=== PATIENT | male | born 1955 | race Caucasian/White ===

== ENCOUNTER 2019-01-21 14:04 | Emergency (ER) | payer BC ==
[2019-01-21 15:10] VITALS: BP 99/72
--- NOTE | 2019-01-21 15:53 | UC ---
Throat Pain/Nasal Gonzalo HPI - HPI Summary HPI Summary: Patient is a 63-year-old male presenting with for sinus pressure and headaches 4 weeks. Patient states he thought he would get better but has gradually worsened. No sinus tenderness. Postnasal drip and intermittent dry cough. Notes daily headaches from sinus pressure. Denies ear pain, sore throat , shortness breath, and wheezing. Denies nausea and vomiting. Denies fever and chills. Has been using Flonase and Mucinex without relief. Patient is a current everyday heavy smoker and has been since he was a teenager. Patient states he is interested in possibly trying to quit. - History of Current Complaint Chief Complaint: UCGeneralIllness Stated Complaint: SINUS PRESSURE Hx Obtained From: Patient Onset/Duration: Gradual Onset, Lasting Weeks Severity: Severe Pain Intensity: 9 Pain Scale Used: 0-10 Numeric - Allergies/Home Medications Allergies/Adverse Reactions: Allergies Allergy/AdvReac Type Severity Reaction Status Date / Time No Known Allergies Allergy Verified 01/21/19 15:10 Home Medications: Home Medications Lisinopril/Hydrochlorothiazide [Lisinopril-Hctz 10-12.5 mg Tab] 1 each PO DAILY 01/21/19 [History Confirmed 01/21/19] Sertraline* [Zoloft*] 10 mg PO DAILY 01/21/19 [History Confirmed 01/21/19] Simvastatin [Zocor] 40 mg PO BEDTIME 01/21/19 [History Confirmed 01/21/19] PMH/Surg Hx/FS Hx/Imm Hx Endocrine History: Dyslipidemia Cardiovascular History: Hypertension - Surgical History Surgical History: None - Social History Alcohol Use: Occasionally Substance Use Type: None Smoking Status (MU): Heavy Every Day Tobacco Smoker Type: Cigarettes Cessation Counseling: Counseled 3+Min - 10 Min Review of Systems All Other Systems Reviewed And Are Negative: Yes Constitutional: Positive: Negative. Negative: Fever, Chills, Fatigue ENT: Positive: Sinus Congestion, Sinus Pain/Tenderness. Negative: Sore Throat, Ear Ache, Nasal Discharge Respiratory: Positive: Cough. Negative: Shortness Of Breath Cardiovascular: Positive: Negative Gastrointestinal: Positive: Negative. Negative: Abdominal Pain, Vomiting, Nausea Musculoskeletal: Positive: Negative Neurological: Positive: Headache Physical Exam Triage Information Reviewed: Yes Appearance: Well-Appearing, No Pain Distress, Well-Nourished Vital Signs: Initial Vital Signs Temp 98.0 F 11/02/19 15:05 Pulse 78 01/21/19 15:05 Resp 16 01/21/19 15:05 BP 99/72 01/21/19 15:05 Pulse Ox 95 01/21/19 15:05 Vital Signs Reviewed: Yes Eyes: Positive: Conjunctiva Clear ENT: Positive: Hearing grossly normal, Pharynx normal, Nasal congestion, Nasal drainage - PND, TMs normal, Sinus tenderness - frontal, Uvula midline. Negative : Tonsillar swelling, Tonsillar exudate Neck exam: Normal Neck: Positive: Supple, Nontender, No Lymphadenopathy Respiratory Exam: Normal Respiratory: Positive: Lungs clear, Normal breath sounds, No respiratory distress. Negative: Crackles, Rhonchi, Stridor, Wheezing Cardiovascular Exam: Normal Cardiovascular: Positive: RRR Neurological: Positive: Alert Psychological: Positive: Age Appropriate Behavior Throat Pain/Nasal Course/Dx - Course Course Of Treatment: I'm treating with Augmentin for sinusitis. Instructed to continue with symptomatic treatment. I also counseled patient on smoking cessation and instruct him to follow up with his PCP or one of the referrals given her information and help on quitting. Instructed to follow up with PCP if symptoms persist or worsen. Patient voiced understanding and agreed with the treatment plan. - Differential Dx/Diagnosis Provider Diagnosis: Encounter for smoking cessation counseling, Sinusitis, Acute bronchitis Discharge ED - Sign-Out/Discharge Documenting (check all that apply): Patient Departure All imaging exams completed and their final reports reviewed: No Studies - Discharge Plan Condition: Stable Disposition: HOME Prescriptions: Amoxicillin/Clavulanate TAB* [Augmentin TAB 875*] 875 mg PO BID #14 tab Patient Education Materials: How to Stop Smoking (ED), Sinusitis (ED) Referrals: [facility] [Outside] - If Needed [facility] [Outside] - If Needed Additional Instructions: As discussed, take Augmentin as prescribed for the treatment of your sinusitis. You may also continue to take Mucinex and use Flonase as directed as prescribed to help relieve symptoms. You may take ibuprofen or tylenol as directed for pain relief. Get plenty of rest and fluids. Follow up with your primary care doctor or one of the referrals listed below if your symptoms worsen or do not resolve within 7-10 days. Follow up with your PCP or the Physician Referral listed below for further information and help on quitting smoking. - Billing Disposition and Condition Condition: STABLE Disposition: Home
== END 2019-01-21 16:14 | disposition home or self-care (01) ==
LOC: UCCORT 14:04
DX: J32.9 Chronic sinusitis, unspecified (principal); J20.9 Acute bronchitis, unspecified; R51 Headache; F17.210 Nicotine dependence, cigarettes, uncomplicated; I10 Essential (primary) hypertension; E78.5 Hyperlipidemia, unspecified; Z71.6 Tobacco abuse counseling; Z79.899 Other long term (current) drug therapy
CPT/HCPCS: 99202; G0463

== ENCOUNTER 2019-02-20 11:17 | Emergency (ER) | payer BC ==
[2019-02-20 11:50] VITALS: BP 108/71
--- NOTE | 2019-02-20 11:51 | UC ---
Throat Pain/Nasal Ognzalo HPI - HPI Summary HPI Summary: 63-year-old male who has had cough and cold symptoms for greater than 1 month. He was treated with an antibiotic on January 21 but feels like nothing ever improved. He went to see his primary care provider 2 weeks later and was told he had allergic rhinitis. Over the past few days he's had increased sinus pressure with purulent postnasal drainage. He continues to smoke. - History of Current Complaint Chief Complaint: UCGeneralIllness Stated Complaint: CHEST CONGESTION/COUGH Time Seen by Provider: 02/20/19 11:50 Hx Obtained From: Patient Onset/Duration: Gradual Onset Severity: Mild Pain Intensity: 6 Cough: Nonproductive Associated Signs & Symptoms: Positive: Sinus Discomfort, Nasal Discharge Related History: Smoking - Allergies/Home Medications Allergies/Adverse Reactions: Allergies Allergy/AdvReac Type Severity Reaction Status Date / Time No Known Allergies Allergy Verified 01/21/19 15:10 Home Medications: Home Medications Atorvastatin* [Lipitor*] 40 mg PO DAILY 02/20/19 [History Confirmed 02/20/19] Fluticasone NASAL SPRAY 50MCG* [Flonase NASAL SPRAY 50MCG*] 2 spray BOTH NARES DAILY 02/20/19 [History Confirmed 02/20/19] Loratadine [Claritin] 10 mg PO DAILY 02/20/19 [History Confirmed 02/20/19] PMH/Surg Hx/FS Hx/Imm Hx Previously Healthy: Yes Endocrine History: Dyslipidemia Cardiovascular History: Hypertension - Surgical History Surgical History: Yes Surgery Procedure, Year, and Place: choly. ruptured liver. bilateral wrist and arm fractures - Family History Known Family History: Positive: Non-Contributory - Social History Lives: With Family Alcohol Use: Occasionally Substance Use Type: None Smoking Status (MU): Heavy Every Day Tobacco Smoker Type: Cigarettes Amount Used/How Often: 1/2 PPD Review of Systems All Other Systems Reviewed And Are Negative: Yes ENT: Positive: Nasal Discharge, Sinus Congestion, Sinus Pain/Tenderness Respiratory: Positive: Cough - Nonproductive cough. Is Patient Immunocompromised?: No Physical Exam Triage Information Reviewed: Yes Appearance: Well-Appearing, No Pain Distress, Well-Nourished Vital Signs: Initial Vital Signs Temp 98.5 F 02/20/19 11:44 Pulse 99 02/20/19 11:44 Resp 16 12/02/19 11:44 BP 108/71 02/20/19 11:44 Pulse Ox 97 02/20/19 11:44 Vital Signs Reviewed: Yes Eyes: Positive: Conjunctiva Clear ENT: Positive: Pharynx normal - Yellow postnasal drainage., Nasal congestion, Nasal drainage - Yellow purulent nasal coryza., TMs normal, Sinus tenderness - Tender over the frontal sinuses., Uvula midline Neck: Positive: Supple, Nontender, No Lymphadenopathy Respiratory: Positive: Lungs clear, Normal breath sounds, No respiratory distress, No accessory muscle use Cardiovascular: Positive: RRR, No Murmur, Pulses Normal, Brisk Capillary Refill Musculoskeletal Exam: Normal Neurological Exam: Normal Psychological Exam: Normal Skin Exam: Normal Throat Pain/Nasal Course/Dx - Course Course Of Treatment: Patient is comfortable here. I'm going to treat him with doxycycline for sinus infection with definite follow-up to an ear nose and throat physician if no improvement. His sees Dr. Uriostegui in [place] and they prefer to go there. - Differential Dx/Diagnosis Provider Diagnosis: Sinusitis Discharge ED - Sign-Out/Discharge Documenting (check all that apply): Patient Departure All imaging exams completed and their final reports reviewed: No Studies - Discharge Plan Condition: Fair Disposition: HOME Prescriptions: DOXYcycline CAP(*) [DOXYcycline 100MG CAP(*)] 100 mg PO BID 10 Days #20 cap Patient Education Materials: Sinusitis (ED) Referrals: No Primary Care Phys,NOPCP [Primary Care Provider] - [facility] [Outside] Heber Freeman MD [Medical Doctor] - Edgrado Uriostegui MD [Medical Doctor] - Additional Instructions: Increase fluids, stop smoking. No dairy products, antacids or multivitamins 2 hours before you take the doxycycline and 2 hours after however you need to take it with food. Definite follow-up with an ear nose and throat physician either Dr. Uriostegui in [place] or Dr. Freeman in [place]. - Billing Disposition and Condition Condition: FAIR Disposition: Home
== END 2019-02-20 12:04 | disposition home or self-care (01) ==
LOC: UCCORT 11:17
DX: J32.9 Chronic sinusitis, unspecified (principal); E78.5 Hyperlipidemia, unspecified; I10 Essential (primary) hypertension; F17.210 Nicotine dependence, cigarettes, uncomplicated; Z79.899 Other long term (current) drug therapy
CPT/HCPCS: 99212; G0463